=== PATIENT | male | born 1960 | race Caucasian/White ===

== ENCOUNTER 2024-11-23 12:20 | Emergency (ER) | payer SELFPAY ==
[2024-11-23] MEDS: Ketorolac 30 MG/ML SDV IM ONE (13:41)
== END 2024-11-23 15:37 | disposition home or self-care (01) ==
LOC: MERGE 12:20 → MW.ED 12:20
DX: S49.92XA Unspecified injury of left shoulder and upper arm, initial encounter (principal); X50.1XXA Overexertion from prolonged static or awkward postures, initial encounter
CPT/HCPCS: 73030; 96372; 99283; J1885; 99282